=== PATIENT | female | born 1975 | race Caucasian/White ===

== ENCOUNTER 2019-07-05 12:06 | Emergency (ER) | payer OTHER ==
[~2019-07-05] VITALS: Ht 170.2 cm; Wt 90.7 kg
[~2019-07-05 12:06] MED LIST: ADRENOID CAPSU1 EACH PO; ALBUTEROL INHAL17 GM IN; AMBIEN 10 MG TA10 MG PO; BACLOFEN 10 MG10 MG PO; BACLOFEN 10MG T10 M1 PO; BACLOFEN 10MG T10 MG PO; BENADRYL25 MG PO; CELEXA10 MG PO; CLEOCIN HCL150 MG PO; CLEOCIN HCL300 MG PO; CLINDAMYCIN HCL75 MG PO; CLONAZEPAM 1 MG1 M1 PO; CLONAZEPAM PO; COLACE100 MG PO; CYMBALTA30 MG PO; DEPAKOTE 250MG250 M1 PO; DEPAKOTE PO; DEPAKOTE500 MG PO; DOLGIC PLUS TA1 EACH PO; FLEXERIL PO; GABAPENTIN PO; HYDROCODON-ACE1 EAC8 PO; HYDROCODONE-AP1 EA11 PO; IBUPROFEN 600600 M1 PO; IBUPROFEN 800800 M1; IBUPROFEN 800800 M1 PO; IBUPROFEN PO; IRON159 MG PO; JOLESSA1 EACH PO; LEVOTHROID PO; LEVOTHYROXINE0.05 MG PO; LUNESTA1 MG PO; LUNESTA3 MG PO; LYRICA 75 MG CA75 MG PO; LYRICA PO; LYRICA150 MG PO; MELATONIN3 MG PO; MULTIVITAMIN; NEURONTIN 300300 M1 PO; NEURONTIN 300M300 M2 PO; NEURONTIN600 MG PO; NORCO 5-325 TA1 EACH PO; OXYBUTYNIN 5 MG5 M1 PO; POTASSIUM20 PO; PRENATAL; PROAIR HFA8.5 GM IH; SINGULAIR 10 MG10 M1 PO; TIZANIDINE HCL4 M1 PO; TOPAMAX PO; TOPAMAX50 MG PO; VESICARE 5 MG TA5 M1 PO; VESICARE 5 MG TA5 MG PO; VESICARE10 M1 PO; ZANTAC 7575 MG PO; ZOFRAN PO; ZOFRAN4 MG PO
[2019-07-05 12:07] VITALS: BP 173/78
[2019-07-05] MEDS ORDERED: NABUMETONE 750750 M1 PO (12:53)
[2019-07-05] MEDS ORDERED: MUPIROCIN15 GM TOP (12:53)
== END 2019-07-05 13:03 | disposition home or self-care (01) ==
LOC: ER 12:06
DX: J34.89 Other specified disorders of nose and nasal sinuses (principal); E03.9 Hypothyroidism, unspecified; J45.909 Unspecified asthma, uncomplicated; M54.9 Dorsalgia, unspecified; G89.29 Other chronic pain; Z98.51 Tubal ligation status; Z98.890 Other specified postprocedural states; Z90.49 Acquired absence of other specified parts of digestive tract; Z91.040 Latex allergy status; Z91.018 Allergy to other foods; Z88.1 Allergy status to other antibiotic agents; Z88.2 Allergy status to sulfonamides; Z88.8 Allergy status to other drugs, medicaments and biological substances